=== PATIENT | female | born 2005 | race Caucasian/White ===

== ENCOUNTER 2024-10-12 00:29 | Emergency (ER) | payer SELFPAY ==
[~2024-10-12] VITALS: Ht 162.6 cm; Wt 49.9 kg
[2024-10-12 00:56] VITALS: BP 99/66; TEMP 98.1; O2SAT 99
== END 2024-10-12 01:02 | disposition home or self-care (01) ==
LOC: ER 00:33
DX: J30.81 Allergic rhinitis due to animal (cat) (dog) hair and dander (principal)